=== PATIENT | male | born 1940 | race Caucasian/White ===

== ENCOUNTER → 2016-08-08 | Outpatient (CLI) | payer MEDICARE, BC ==
[~2016-08-08] MED LIST: ASPI325T PO; COLB500.5 PO; COZA50TA PO; FURO1TAB93 PO; GEMF600T PO; GLUC250C5 PO; LEVO.15 PO; METO50TA PO; NORV5TAB PO; POTA-267 PO; WARF2.5T40 PO
[2016-08-08 12:08] LABS: AUTOMATED NEUTROPHIL # 1.9 TH/MM3 (1.8-7.7); BASOPHIL % 0.6 % (0.0-2.0); EOSINOPHIL # 0.1 TH/MM3 (0-0.4); EOSINOPHIL % 4.1 % (0.0-4.0); HEMATOCRIT 41.6 % (39.0-51.0); HEMO FLAGS DIFF FINAL; LYMPH % 35.9 % (9.0-44.0); LYMPHOCYTE # 1.3 TH/MM3 (1.0-4.8); MEAN CELL VOLUME 87.3 FL (80.0-100.0); MEAN CORPUSCULAR HEMOGLOBIN 28.4 PG (27.0-34.0); MEAN CORPUSCULAR HGB CONC 32.6 % (32.0-36.0); MONO % 8.1 % (0.0-8.0); NEUT % 51.3 % (16.0-70.0); PLATELET COUNT 133 TH/MM3 (150-450); RED BLOOD COUNT 4.76 MIL/MM3 (4.50-5.90); RED CELL DISTRIBUTION WIDTH 12.8 % (11.6-17.2); WHITE BLOOD COUNT 3.6 TH/MM3 (4.0-11.0)
[2016-08-08 12:30] LABS: ANION GAP 7 MEQ/L (5-15); AST (GOT) 19 U/L (15-37); BLOOD UREA NITROGEN 17 MG/DL (7-18); CHLORIDE 107 MEQ/L (98-107); GLOMERULAR FILTRATION RATE 68 ML/MIN (>89); GLUCOSE,FASTING 90 MG/DL (74-99); MAGNESIUM 2.2 MG/DL (1.5-2.5); POTASSIUM 3.7 MEQ/L (3.5-5.1); SODIUM (NA) 142 MEQ/L (136-145); URIC ACID 7.2 MG/DL (2.6-7.2)
[2016-08-08 12:38] LABS: ALKALINE PHOSPHATASE 59 U/L (45-117); ALT (GPT) 21 U/L (12-78); HDL CHOLESTEROL 26.9 MG/DL (40.0-60.0); LDL CHOLESTEROL 70 MG/DL (0-99); TOTAL BILIRUBIN ADULT 0.8 MG/DL (0.2-1.0)
== END ==
LOC: PLAB 08:34
PROVIDERS: ATTEND Internal Medicine Nephrology
DX: N18.2 Chronic kidney disease, stage 2 (mild) (principal); M10.9 Gout, unspecified; E78.5 Hyperlipidemia, unspecified; E03.9 Hypothyroidism, unspecified
CPT/HCPCS: 36415; 80053; 80061; 83735; 84443; 84550; 85025

== ENCOUNTER → 2017-02-03 | Outpatient (CLI) | payer MEDICARE, BC ==
[2017-02-03 10:33] LABS: AUTOMATED NEUTROPHIL # 1.8 TH/MM3 (1.8-7.7); BASOPHIL % 0.9 % (0.0-2.0); EOSINOPHIL # 0.1 TH/MM3 (0-0.4); EOSINOPHIL % 4.5 % (0.0-4.0); HEMATOCRIT 38.8 % (39.0-51.0); HEMO FLAGS DIFF FINAL; LYMPH % 32.8 % (9.0-44.0); LYMPHOCYTE # 1.1 TH/MM3 (1.0-4.8); MEAN CELL VOLUME 88.3 FL (80.0-100.0); MONO % 7.7 % (0.0-8.0); NEUT % 54.1 % (16.0-70.0); PLATELET COUNT 138 TH/MM3 (150-450); RED BLOOD COUNT 4.39 MIL/MM3 (4.50-5.90); RED CELL DISTRIBUTION WIDTH 13.1 % (11.6-17.2); WHITE BLOOD COUNT 3.3 TH/MM3 (4.0-11.0)
[2017-02-03 10:45] LABS: ANION GAP 7 MEQ/L (5-15); AST (GOT) 21 U/L (15-37); BICARBONATE 27.4 MEQ/L (21.0-32.0); BLOOD UREA NITROGEN 16 MG/DL (7-18); CHLORIDE 106 MEQ/L (98-107); GLOMERULAR FILTRATION RATE 79 ML/MIN (>89); GLUCOSE,FASTING 91 MG/DL (74-99); MAGNESIUM 2.2 MG/DL (1.5-2.5); SODIUM (NA) 140 MEQ/L (136-145)
[2017-02-03 10:58] LABS: ALKALINE PHOSPHATASE 68 U/L (45-117); ALT (GPT) 19 U/L (12-78); HDL CHOLESTEROL 28.8 MG/DL (40.0-60.0); LDL CHOLESTEROL 61 MG/DL (0-99); TOTAL BILIRUBIN ADULT 0.5 MG/DL (0.2-1.0)
== END ==
LOC: PLAB 08:16
PROVIDERS: ATTEND Internal Medicine Nephrology
DX: E78.5 Hyperlipidemia, unspecified (principal); M10.9 Gout, unspecified; N18.2 Chronic kidney disease, stage 2 (mild); E03.9 Hypothyroidism, unspecified
CPT/HCPCS: 36415; 80053; 80061; 83735; 84443; 85025

== ENCOUNTER 2017-04-10 10:09 | Day surgery (SDC) | payer MEDICARE, BC ==
[2017-04-10] VITALS (8 sets, daily range): BP systolic 147–155; BP diastolic 73–87; PULSE 61–87; RESP 16–20; TEMP 98–98.1; O2SAT 95–96
[~2017-04-10] VITALS: Ht 177.8 cm; Wt 77.6 kg
[~2017-04-10 10:09] MED LIST changes: +NS 1000P @30 MLS/HR (KVO) IV SCH
[2017-04-10] MEDS ORDERED: IOHEXOL 350 MG/ML 100 ML BTL (for Cath Lab) OTHER ONE (10:10)
[2017-04-10] MEDS ORDERED: DILT240C44 PO (11:14)
[2017-04-10] MEDS ORDERED: WARF-18 PO (11:14)
[2017-04-10] MEDS ORDERED: FURO40TA PO (11:14)
[2017-04-10] MEDS ORDERED: COLB500.5 PO (11:14)
[2017-04-10] MEDS ORDERED: POTA10CA PO (11:14)
[2017-04-10] MEDS ORDERED: METO50TA PO (11:14)
[2017-04-10] MEDS ORDERED: OMEP20TA93 PO (11:14)
[2017-04-10] MEDS ORDERED: LEVO.15 PO (11:14)
[2017-04-10] MEDS ORDERED: ISOS30TA3 PO (11:14)
[2017-04-10] MEDS ORDERED: GEMF600T PO (11:14)
[2017-04-10] MEDS ORDERED: ASPI325T27 PO (11:14)
[2017-04-10 11:16] LABS: AUTOMATED NEUTROPHIL # 2.5 TH/MM3 (1.8-7.7); BASOPHIL % 0.6 % (0.0-2.0); EOSINOPHIL # 0.1 TH/MM3 (0-0.4); EOSINOPHIL % 2.8 % (0.0-4.0); HEMATOCRIT 40.8 % (39.0-51.0); HEMOGLOBIN 13.8 GM/DL (13.0-17.0); LYMPH % 30.4 % (9.0-44.0); LYMPHOCYTE # 1.3 TH/MM3 (1.0-4.8); MEAN CORPUSCULAR HEMOGLOBIN 29.4 PG (27.0-34.0); MEAN CORPUSCULAR HGB CONC 33.8 % (32.0-36.0); MEAN PLATELET VOLUME 8.3 FL (7.0-11.0); MONO % 6.8 % (0.0-8.0); MONOCYTE # 0.3 TH/MM3 (0-0.9); NEUT % 59.4 % (16.0-70.0); PLATELET COUNT 157 TH/MM3 (150-450); RED BLOOD COUNT 4.68 MIL/MM3 (4.50-5.90); RED CELL DISTRIBUTION WIDTH 12.7 % (11.6-17.2); WHITE BLOOD COUNT 4.3 TH/MM3 (4.0-11.0)
[2017-04-10 11:24] LABS: INTERNATIONAL NORMALIZED RATIO 1.6 RATIO; PROTHROMBIN TIME - PATIENT 16.4 SEC (9.8-11.6)
[2017-04-10 11:35] LABS: BICARBONATE 27.7 MEQ/L (21.0-32.0); CALCIUM 8.9 MG/DL (8.5-10.1); CREATININE 0.93 MG/DL (0.60-1.30)
[2017-04-10] MEDS ORDERED: HEPARIN-NS/PF INJ 1,000 ML ONE (12:51)
[2017-04-10] MEDS ORDERED: MIDAZOLAM HCL 2 MG/2 ML VIAL ONE (12:51)
[2017-04-10] MEDS ORDERED: BIVALIRUDIN 250 MG VIAL ONE (13:55)
[2017-04-10] MEDS ORDERED: HEPARIN-NS/PF INJ 500 ML ONE (14:12)
[2017-04-10] MEDS ORDERED: ASPIRIN 81 MG CHEW TAB ONE (14:40)
[2017-04-10] MEDS ORDERED: CLOPIDOGREL 300 MG TAB ONE (14:40)
[2017-04-10] MEDS ORDERED: ASPIRIN 81 MG CHEW TAB PO SCH (15:00)
--- NOTE | 2017-04-10 15:07 | CATHPROC ---
[employer] HIS Report Study Information Study Number Admission Scheduled Start Study Start [id number] Apr 10 2017 10:09AM 04/10/2017 Apr 10 2017 12:52PM Study Type [place] Service Left/Possible PCI Cardiac Catheterization Admit Source Facility Department Other [facility] - End User Support Specialist Physician and Clinical Staff Initial Kenneth Parr Internist Herbert RN, Phillip RecordYelena Casillas,SENIOR LABORATORY TECHNICIAN TECH2 Scrub Randi Simon,RT(R) (BS) Scrub Hawa Saini ,RT(R) Procedures Performed Procedure Location (Site) Vessel Name Angiogram LV LV Ventricle Coronary Angiograms LCA Left Coronary Coronary Angiograms RCA Right Coronary Drug Eluting Inflatio LAD Mid Left Coronary PTCA LAD Mid Left Coronary Wire insertion Fem Art (right) Femoral Art Equipment Time Tea Blender Description Size Mfg Part Number Used/Scraped [id number] 14:06 [employer] WIRE, ASAHI PROWATER 180CM 180CM Used *[id number] TRANSDUCER, TRUWAVE [id number] 12:53 GUZMAN GASCA * Used W/STOCKCOCK *[id number] 14:21 [employer]OSTON [employer] STENT, SYNERGY 2.5 X 16MM Used *[id number] 14:05 [employer] VL4 GUIDE CATHETER RUNWAY FR 6 Used *[id number] INTRODUCER SET, 12:53 [employer]. FR 5 [id number] *[id number] Used MICROPUNCTURE, STIFFENED 538-445 *[id number] 538-448 *[id number] 538-420 *[id number] 538-422 *[id number] 538-453S *[id number] [id number] 14:37 DAIG/ST. MELITA MEDICAL ANGIOSEAL, FR6 VIP FR 6 Used *[id number] 12:53 MEDLINE INDUSTRIES PACK, CCL CUSTOM * Used *[id number] 12:53 [employer]Place PACER PEN, SKIN DUAL W/ RULER * Used *[id number] BALLOON, 2.5 X 12MM NC [id number] 14:28 MEDTRONIC 12MM Used EUPHORA *[id number] 14:23 Argyle Data MEDICAL 30 ABBEY INDEFLATOR Used *[id number] 12:53 [employer]yle Data MEDICAL WIRE, 3MMJ .035 180CM 180CM Used *[id number] 13:47 MERIT MEDICAL WIRE, 3MMJ .035 180CM 180CM Used *[id number] PROBE COVER, STERILE [id number] 12:53 MICROTEK MEDICAL * Used ULTRASOUND W/ GEL *3457947 [id number] 12:53 NAMIC MANIFOLD, 4 PORT * Used *[id number] 12:53 NYCOMED OMNIPAQUE, 350 MG, 150ML 150ML [id number] Used 14:01 NYCOMED OMNIPAQUE, 350 MG, 50ML 50ML [id number] Used [id number] 12:53 [facility] BLANKET,WARM AIR CCL * Used *[id number] [id number] 12:53 TERUMO MEDICAL SHEATH, FR4 TERUMO (10CM) FR 4 Used *[id number] [id number] 14:02 TERUMO MEDICAL SHEATH, FR6 TERUMO (10CM) FR 6 Used *[id number] Equipment Model, Serial, Lot Number and Expiration Data Description Model Number Serial Number Lot Number Expiration Date ANGIOSEAL, FR6 VIP [id number] 01-13-2018 BALLOON, 2.5 X 12MM IA [id number] 12-30-2018 EUPHORA STENT, SYNERGY [id number] 11-26-2017 VL4 GUIDE CATHETER RUNWAY [id number] 11-14-2019 WIRE, 3MMJ .035 180CM [id number] 01-14-2020 History: Current Medications Medication Dosage/Unit Route Frequency Last Date/Time Taken Coumadin LOVENOX ASA K-Dur LOPRESSOR Synthroid LASIX CARDIZEM Prilosec Imdur History: Allergies Allergy Reaction No Known Allergies MERSILINE SUTURES History: Risk Factors Family History of Hypertension Dyslipidemia Previous [facility] Previous Heart Failure Premature CAD Yes Yes No Yes No Prior Valve Prior PCI Prior CABG Surgery No No No Cerebrovascular Peripheral Artery Chronic Lung On Dialysis Diabetes Disease Disease Disease No No No No No History: Symptoms/Diagnosis Selection Items Chest pain History: Stress Tests Stress or Imaging Studies Performed No History: Arrhythmias Selection Items Atrial fibrillation History: Other Disease Selection Items Gerd History: Other Current Smoker Quit Packs a Day Years Used Pack Years No 32 Years Ago 1 22 Labs Hgb (g/dl) Hct (%) WBC (l/cumm) Platelets (thousands) 11.60-17.00 35.00-51.00 4.00-11.00 150.00-450.00 13.8 40.8 4.3 157 Glucose (mg/dl) BUN (mg/dl) Creatinine (mg/dl) BUN:Creatinine (1:x) 74.00-106.00 7.00-18.00 0.50-1.30 10.00-20.00 95 16 0.9 17.8 Na (meq/l) K (meq/l) 136.00-145.00 3.50-5.10 142 4 PT (sec) PTT (sec) INR (PTT:PT) 9.80-11.60 24.30-30.10 0.90-1.10 16.4 31.6 1.6 CPK-MB (ng/ML) 0.50-3.60 Not Drawn Medication Medication Total Dose (Bolus/Oral) Medication Total Dosage/Unit 1% XYLOCAINE 20 mL ASPIRIN 324 mg FENTANYL 100 mcg HEPARIN 6800 units NTG (IC) 200 mcg PLAVIX 600 mg VERSED 2 mg Medications (Bolus/Oral) Medication Time Given Dosage/Unit Administered By Reason FENTANYL 04/10/2017 1:31:05 PM 50 mcg Phillip Godinez RN 50 mcg FENTANYL given in lab by Phillip Godinez RN in Left Antecubital via Peripheral IV. Ordered by Kenneth Manzano. 1% XYLOCAINE 04/10/2017 1:31:18 PM 20 mL Kenneth Duff 20 mL 1% XYLOCAINE given in lab by Kenneth Duff in Right Groin via Subcutaneous. Ordered by Kenneth King. VERSED 04/10/2017 1:32:09 PM 2 mg Phillip Godinez RN 2 mg VERSED given in lab by Phillip Godinez RN in Left Antecubital via Peripheral IV. Ordered by Kenneth Duff. HEPARIN 04/10/2017 2:04:57 PM 6800 units Phillip Godinez RN 6800 units HEPARIN given in lab by Phillip Godinez RN in Left Antecubital via Peripheral IV. Ordered by Kenneth Duff. NTG (IC) 04/10/2017 2:32:08 PM 200 mcg Kenneth Duff 200 mcg NTG (IC) given in lab by Kenneth Duff via Intra-coronary. Ordered by Kenneth Duff. FENTANYL 04/10/2017 2:37:28 PM 50 mcg Phillip Godinez RN 50 mcg FENTANYL given in lab by Phillip Godinez RN in Left Antecubital via Peripheral IV. Ordered by Kenneth Manzano. ASPIRIN 04/10/2017 2:42:22 PM 324 mg Phillip Godinez RN 324 mg ASPIRIN given in lab by Phillip Godinez RN via Oral. Ordered by Kenneth Duff. PLAVIX 04/10/2017 2:46:51 PM 600 mg Phillip Godinez RN 600 mg PLAVIX given in lab by Phillip Godinez RN via Oral. Ordered by Kenneth Duff. Medication (Drip) Medication Time Given Dosage/Unit Concentration/Unit Diluent (ml) Solution IV Solutions 04/10/2017 12:57:00 PM 50 mL (IV) 500 NaCl .9 Patient arrived on IV Solutions in Left Antecubital via Peripheral IV. Pump/Drip Flow using NaCl .9. Initial Case Assessment Cardiovascular HR Rhythm NIBP Chest Pain 81 paced 175/99 0 Circulatory - Right Pulses Dorsalis Pedis Femoral 2 2 Scale (0,1,2,3,4,d) Circulatory - Left Pulses Dorsalis Pedis Femoral 2 2 Scale (0,1,2,3,4,d) Neurological State Oriented to time-place- Alert Moves all extremities person Respiration - General Respiration Rate SpO2 (%) (B/min) 10 97 Final Case Assessment Cardiovascular HR Rhythm NIBP Chest Pain 77 paced 141/76 0 Chronological Log Time Study Chronological Log 12:45:21 Patient arrived via Bed. 12:45:27 Patient Name, D.O.B, / Armband Verified By R.N. 12:52:32 Consent signed by the physician and the patient and verified by the End User Support Specialist staff. 12:52:33 Pre-op and post- op instructions given; patient acknowledges understanding of instructions. 12:52:34 Verbal Stimulation=2 Physical Stimulation=2 Airway=2 Respiration=2 TOTAL=8. (0=absent, 1=li mited, 2=present) Vitals capture started with the following parameters, Patient=Adult, Interval=5 min, Initial Pr ztzhut=545 mmHg, 12:53:39 Deflation Rate=5 mmHg, Cuff placed on Left Arm 12:53:47 Reference ECG taken 12:54:53 HR=73 bpm, JUCF=468/99 mmhg, SpO2=96.0 %, Resp=16 B/min, Pain=0, Rosa=10, Warner=2 12:56:53 Patient has been NPO for More than 6Hrs. 12:56:55 Skin Breakdown-none per patient 12:56:57 Hanna Prominences Protected 12:56:59 A # 20 IV was noted in the Antecubital (left). Grade = patent 12:57:00 Patient arrived on IV Solutions in Left Antecubital via Peripheral IV. Pump/Drip Flow using NaCl .9. 12:57:02 History and physical on the chart or being dictated. Assessment: Initial Case, HR=81 BPM, Rhythm=paced, PMJO=100/99 mmhg, Chest Pain=0 Right Pulses: Mariano Ped=2, Femoral=2 12:57:03 Left Pulses: Mariano Ped=2, Femoral=2 Neurological: State=Alert, Ox3, AZAR Respiration: Resp=10 B/min, SpO2=97 % 12:59:25 HR=79 bpm, JJWE=307/90 mmhg, SpO2=97.0 %, Resp=16 B/min, Rosa=10 13:04:24 HR=78 bpm, ZFKB=003/110 mmhg, SpO2=98.0 %, Resp=10 B/min, Rosa=10 13:09:25 HR=88 bpm, UJGO=531/109 mmhg, SpO2=98.0 %, Resp=8 B/min 13:11:18 Pressure channel 1 zeroed. 13:12:00 MD paged 13:14:22 HR=87 bpm, OFMN=497/94 mmhg, SpO2=98.0 %, Resp=8 B/min 13:19:25 HR=79 bpm, ZINF=215/98 mmhg, SpO2=99.0 %, Resp=7 B/min, Rosa=10 13:24:26 HR=87 bpm, RUFL=001/103 mmhg, SpO2=97.0 %, Resp=17 B/min 13:28:10 MD arrived. 13:29:25 HR=80 bpm, YYVD=805/109 mmhg, SpO2=97.0 %, Resp=15 B/min, Rosa=10 Time Out. Correct patient, correct procedure, correct physician, power injector not loaded with contrast with surgical 13:30:20 team present. Time Out Concurred by MD and individual staff in procedure. 13:31:05 Case Start 13:31:05 50 mcg FENTANYL given in lab by Phillip Godinez RN in Left Antecubital via Peripheral IV. Orde red by Kenneth Duff. 20 mL 1% XYLOCAINE given in lab by Kenneth Duff in Right Groin via Subcutaneous. Ordered by Sherin 13:31:18 Kenneth. 13:32:09 2 mg VERSED given in lab by Phillip Godinez RN in Left Antecubital via Peripheral IV. Ordered by Kenneth Duff. 13:32:52 Access site was Right Femoral Artery. A INTRODUCER SET, MICROPUNCTURE, STIFFENED FR 5 was advanced into the Fem Art (right) using the 13:33:56 Percutaneous technique. A SHEATH, FR4 TERUMO (10CM) FR 4 was exchanged in the Fem Art (right). This was necessary in or mina to 13:34:06 accomodate a larger catheter. 13:34:24 HR=86 bpm, EMKU=208/92 mmhg, SpO2=95.0 %, Resp=15 B/min A JL 4.0 INFINITI CATHETER FR 4 was advanced over a wire. OMNIPAQUE, 350 MG, 150ML 150ML was us ed for 13:36:22 injections. 13:37:44 Unable to cannulate, Catheter was removed A JL 5.0 INFINITI CATHETER FR 4 was advanced over a wire. OMNIPAQUE, 350 MG, 150ML 150ML was us ed for 13:39:00 injections. 13:39:28 HR=80 bpm, OGPJ=959/84 mmhg, SpO2=95.0 %, Resp=17 B/min Recorded Pressure: Ao, HR=87, Condition=Condition 1 13:40:09 (Aorta) Ao 129/72/98 13:41:53 The LCA was injected and visualized at various angles. OMNIPAQUE, 350 MG, 150ML 150ML used . 13:44:14 Catheter was removed A AR MOD INFINITI CATHETER FR 4 was advanced over a wire. OMNIPAQUE, 350 MG, 150ML 150ML was us ed for 13:44:23 injections. 13:44:27 HR=91 bpm, OQVT=927/82 mmhg, SpO2=96.0 %, Resp=20 B/min 13:46:51 Unable to advance cather, Catheter was removed 13:47:34 A WIRE, 3MMJ .035 180CM 180CM was inserted via Fem Art (right). A AR MOD INFINITI CATHETER FR 4 was advanced over a wire. OMNIPAQUE, 350 MG, 150ML 150ML was us ed for 13:48:07 injections. 13:49:26 HR=85 bpm, PHMB=877/94 mmhg, SpO2=95.0 %, Resp=8 B/min 13:54:27 HR=80 bpm, WBGI=339/93 mmhg, SpO2=96.0 %, Resp=20 B/min 13:54:56 Unable to cannulate, Catheter was removed A AL 1 INFINITI CATHETER FR 4 was advanced over a wire. OMNIPAQUE, 350 MG, 150ML 150ML was used for 13:54:57 injections. 13:55:08 The RCA was injected and visualized at various angles. OMNIPAQUE, 350 MG, 150ML 150ML used . After removing the current catheter a PIGTAIL ANG. INFINITI CATHETER FR 4 was advanced over a W DEBORAH, 3MMJ .035 13:58:40 180CM 180CM. 13:59:30 HR=77 bpm, ASRW=826/79 mmhg, SpO2=96.0 %, Resp=8 B/min Recorded Pressure: LV, HR=69, Condition=Condition 1 13:59:41 (Left Ventricle) LV 123/8/10 14:00:31 The LV was injected at 8 cc/sec for a total of 20. OMNIPAQUE, 350 MG, 50ML 50ML used. Recorded Pressure: LV, Ao, HR=77, Condition=Condition 1 14:01:56 (Left Ventricle) LV 129/9/12, (Aorta) Ao 130/64/95 14:02:33 Catheter was removed over wire. A SHEATH, FR6 TERUMO (10CM) FR 6 was exchanged in the Fem Art (right). This was necessary in or mina to 14:04:16 accomodate a larger catheter. 14:04:27 HR=72 bpm, CTAE=905/88 mmhg, SpO2=97.0 %, Resp=23 B/min 14:04:57 6800 units HEPARIN given in lab by Phillip Godinez RN in Left Antecubital via Peripheral IV. O rdered by Kenneth Duff. A VL4 GUIDE CATHETER RUNWAY FR 6 was advanced over a wire. OMNIPAQUE, 350 MG, 150ML 150ML was u sed for 14:07:53 injections. 14:09:30 HR=81 bpm, PGAM=226/83 mmhg, SpO2=97.0 %, Resp=10 B/min 14:10:39 The LCA was injected and visualized at various angles. OMNIPAQUE, 350 MG, 150ML 150ML used . 14:14:27 HR=85 bpm, VZLH=618/91 mmhg, SpO2=96.0 %, Resp=0 B/min 14:18:18 A WIRE, ASAHI PROWATER 180CM 180CM was inserted via Fem Art (right). 14:19:05 Activated Clotting Time Drawn 14:19:30 HR=78 bpm, DEWB=327/87 mmhg, SpO2=96.0 %, Resp=8 B/min A STENT, SYNERGY 2.5 X 16MM was advanced through a VL4 GUIDE CATHETER RUNWAY FR 6 over a WIRE, ASAHI 14:21:33 PROWATER 180CM 180CM. A STENT, SYNERGY 2.5 X 16MM was deployed using a 30 ABBEY INDEFLATOR at 12 atmospheres for 30 sec onds in the 14:23:12 LAD Mid. 14:24:24 Delivery device removed 14:24:29 HR=81 bpm, NGUS=209/96 mmhg, SpO2=96.0 %, Resp=8 B/min 14:25:30 ACT (Normal Range 90-180) = 352 A BALLOON, 2.5 X 12MM NC EUPHORA 12MM was inserted over WIRE, ASAHI PROWATER 180CM 180CM via th e LAD 14:26:34 Mid. A BALLOON, 2.5 X 12MM NC EUPHORA 12MM over a WIRE, ASAHI PROWATER 180CM 180CM in the LAD Mid wa s 14:29:25 inflated using a 30 ABBEY INDEFLATOR at 14 abbey for 20 sec. 14:29:28 HR=82 bpm, GPKS=438/92 mmhg, SpO2=96.0 %, Resp=10 B/min 14:31:46 Balloon Removed. 14:32:08 200 mcg NTG (IC) given in lab by Kenneth Duff via Intra-coronary. Ordered by Micky Duff. 14:33:30 Wire removed 14:34:10 Catheter was removed over wire 14:34:33 HR=74 bpm, JKLS=762/70 mmhg, SpO2=96.0 %, Resp=14 B/min 14:35:06 An injection in the Fem Art (right) was made through the SHEATH, FR6 TERUMO (10CM) FR 6. 14:37:12 Betadine applied to site. 14:37:28 50 mcg FENTANYL given in lab by Phillip Godinez RN in Left Antecubital via Peripheral IV. Orde red by Kenneth Duff. 14:37:53 ANGIOSEAL, FR6 VIP FR 6 placement in the Fem Art (right) 14:39:32 HR=80 bpm, FATG=092/76 mmhg, SpO2=94.0 %, Resp=5 B/min 14:39:47 Case End 14:40:11 Sterile dressing applied to site 14:40:55 No case complications noted. 14:40:56 Cine recording checked. 14:41:36 Assessment: Final Case, HR=77 BPM, Rhythm=paced, ERSC=206/76 mmhg, Chest Pain=0 14:42:22 324 mg ASPIRIN given in lab by Phillip Godinez RN via Oral. Ordered by Kenneth Duff. 14:44:29 HR=86 bpm, PGTE=357/89 mmhg, SpO2=95.0 %, Resp=12 B/min 14:46:51 600 mg PLAVIX given in lab by Phillip Godinez RN via Oral. Ordered by Kenneth Duff. 14:49:03 Vitals capture stopped. 14:52:28 Patient transported to DOCU. End Study - Contrast Media Used In Study Contrast Total Opened (mL) Total Used (mL) Total Wasted (mL) Omnipaque 180 180 0 End Study - Maximum Contrast Load Max Contrast Load (mL) 536.6 End Study - Radiation Exposure Fluoro Time (minutes) 17.4 End Study - Sheaths Sheaths Pulled By Sheath Hold Time (min) Kenneth Duff End Study - Patient Disposition Complications Transferred To Interventional Outcome No Telemetry Bed successful
[2017-04-10] MEDS ORDERED: ATORVASTATIN 40 MG TAB PO SCH (21:00)
[2017-04-10] MEDS: METOPROLOL TARTRATE 50 MG TAB PO SCH (21:36)
[2017-04-11] VITALS (17 sets, daily range): BP systolic 122–159; BP diastolic 71–88; PULSE 65–94; RESP 18; TEMP 97.7–98.4; O2SAT 95–98
[2017-04-11] MEDS ORDERED: LEVOTHYROXINE SODIUM 150 MCG TAB PO SCH (06:00)
[2017-04-11 06:51] LABS: BICARBONATE 26.4 MEQ/L (21.0-32.0); CALCIUM 8.8 MG/DL (8.5-10.1); CREATININE 0.84 MG/DL (0.60-1.30)
[2017-04-11 06:54] LABS: CHOLESTEROL/ HDL RATIO 5.48 RATIO; HDL CHOLESTEROL 20.6 MG/DL (40.0-60.0)
[2017-04-11] MEDS: METOPROLOL TARTRATE 50 MG TAB PO SCH (08:18)
[2017-04-11] MEDS ORDERED: CLOPIDOGREL 75 MG TAB PO SCH (09:00)
[2017-04-11] MEDS ORDERED: DILTIAZEM-CD 240 MG CAP ER PO SCH (09:00)
--- NOTE | 2017-04-11 14:20 | EKG ---
Date Performed: 04/10/2017 Time Performed: 12:36:26 PTAGE: 77 years EKG: Atrial fibrillation. Demand ventricular pacing Abnormal ECG PREVIOUS TRACING : 12/12/2013 13.29 Clinical correlation is recommended DOCTOR: Eagle Anderson Interpretating Date/Time 04/11/2017 14:18:29
--- NOTE | 2017-04-11 15:43 | PD.CARD.PN ---
Subjective Subjective Remarks No CP or SOB, feels fine Objective Medications Current Medications Medications (Trade) Dose Ordered Sig/Kitty Route Start Time Stop Time Status Last Admin Sodium Chloride 1,000 ml @ 30 mls/hr Q24H IV 04/10/17 10:00 04/10/17 10:00 (Plavix) 75 mg DAILY PO 04/11/17 09:00 04/11/17 08:18 (Aspirin Chew) 81 mg DAILY PO 04/10/17 15:00 04/11/17 08:17 (Lipitor) 40 mg HS PO 04/10/17 21:00 04/10/17 21:36 (Cardizem Cd) 240 mg DAILY PO 04/11/17 09:00 04/11/17 08:18 (Lopressor) 50 mg BID PO 04/10/17 21:00 04/11/17 08:18 (Synthroid) 150 mcg DAILY@0600 PO 04/11/17 06:00 04/11/17 05:21 Vital Signs / I&O Vital Signs Date Time Temp Pulse Resp B/P (MAP) Pulse Ox O2 Delivery O2 Flow Rate FiO2 04/11/17 11:26 98.0 84 18 122/71 (88) 96 04/11/17 08:08 97.7 94 18 149/88 (108) 95 04/11/17 08:08 Room Air 04/11/17 07:00 87 04/11/17 06:00 69 04/11/17 05:00 71 04/11/17 04:00 98.2 73 18 159/80 (106) 98 04/11/17 04:00 Room Air 04/11/17 04:00 73 04/11/17 03:00 70 04/11/17 02:00 69 04/11/17 01:00 65 04/11/17 00:00 98.4 70 18 138/74 (95) 96 04/11/17 00:00 70 04/11/17 00:00 Room Air 04/10/17 23:00 66 04/10/17 22:00 63 04/10/17 21:00 65 04/10/17 20:00 61 04/10/17 20:00 98.0 61 20 148/76 (100) 95 04/10/17 18:00 69 04/10/17 17:42 66 04/10/17 16:59 98.1 63 16 147/73 (97) 96 I/O 04/10/17 04/10/17 04/10/17 04/11/17 04/11/17 04/11/17 07:00 15:00 23:00 07:00 15:00 23:00 Intake Total 240 ml 248 ml Output Total 750 ml Balance 240 ml -502 ml Intake Oral 240 ml 248 ml Output Urine Total 750 ml # Bowel Movements 0 Physical Exam GENERAL: In NAD SKIN: Warm and dry. HEAD: Normocephalic. EYES: No scleral icterus. No injection or drainage. NECK: Supple, trachea midline. No JVD or lymphadenopathy. CARDIOVASCULAR: Regular rate and rhythm without murmurs, gallops, or rubs. RESPIRATORY: Breath sounds equal bilaterally. No accessory muscle use. GASTROINTESTINAL: Abdomen soft, non-tender, nondistended. MUSCULOSKELETAL: No cyanosis, or edema. Groin stable Laboratory Laboratory Tests Test 04/11/17 05:10 Blood Urea Nitrogen 16 MG/DL Creatinine 0.84 MG/DL Random Glucose 105 MG/DL Calcium Level 8.8 MG/DL Sodium Level 140 MEQ/L Potassium Level 3.8 MEQ/L Chloride Level 107 MEQ/L Carbon Dioxide Level 26.4 MEQ/L Anion Gap 7 MEQ/L Estimat Glomerular Filtration Rate 88 ML/MIN Triglycerides Level 175 MG/DL Cholesterol Level 113 MG/DL LDL Cholesterol 57 MG/DL HDL Cholesterol 20.6 MG/DL Cholesterol/HDL Ratio 5.48 RATIO Assessment and Plan Problem List: (1) CAD (coronary artery disease) ICD Codes: I25.10 - Atherosclerotic heart disease of [place] coronary artery without angina pectoris (2) Stented coronary artery ICD Codes: Z95.5 - Presence of coronary angioplasty implant and graft Assessment and Plan Stable p mid LAD stenting. Groin stable. Continue Plavix, baby ASA, beta jose , start statin. DC home. F/u w Dr. Duff. Nena Faye MD Apr 11, 2017 15:43
--- NOTE | 2017-04-13 09:56 | MA ---
cc: KENNETH DUFF M.D. DATE 04/10/2017 PROCEDURE 1. Heart catheterization. 2. Stent placement to the proximal to mid LAD. CONSENT A full informed consent was obtained prior to the procedure. The risks of , bleeding, myocardial infarction, perforation, aspiration, foreseen and unforeseen complications were reviewed. The patient fully appeared to understand the risks. PROCEDURAL STATEMENTS The patient was prepped and draped in the usual manner. The right femoral artery was entered using a micropuncture technique. Via a 4 Portuguese sheath left and right coronary catheters were used to intubate the left and right coronaries, and a pigtail catheter the left ventricle. Multiple angiographic views were carried out. CORONARIES The left main was large and free of significant disease. There was calcification noted throughout the LAD system, especially in the proximal LAD. In the very proximal LAD was a medium size diagonal branch. There was a large septal youth development professional. There was a second small to medium diagonal branch in the mid LAD and this had an 80% stenosis. Following stenting this was reduced to 0%. The circumflex artery was a large vessel with a large first obtuse marginal branch that bifurcated to sub-branches. There was evidence of diffuse disease of about 60% involving the small 0.5 mm branches that were short. In the distal circumferential there was also evidence of high-grade 80% disease a small area of muscle. The second obtuse marginal branch was small. The right coronary artery was an aberrant vessel. It was engaged with an AL-1 catheter. There was evidence of diffuse disease of about 25-40% in the proximal right. There was a large posterior descending artery. LEFT VENTRICULOGRAM Well-preserved ejection fraction of 55%. No evidence of gradient on pullback across the LV outflow tract and aortic valve. HEMODYNAMICS The aortic pressure was 130/64 with mean of 95. LV pressure was 129. The left ventricle end-diastolic pressure was 12. INTERVENTION The patient was given sedation with fentanyl and Versed. Following the left heart catheterization with a 4 Portuguese system the patient was given heparin 6800 units and an ACT of 352 was obtained. Prior to this the 4 Portuguese sheath had been exchanged for a 6 Portuguese [place] sheath ([employer]). A [employer] left 4.0 guide catheter was used to intubate the left main. A 0.014 Prowater wire was used to cross the mid LAD lesion. This was directly stented with a 16 mm x 2.5 Synergy balloon inflated to 12 atmospheres. The stent was post dilated using a 12 mm x 2.5 mm noncompliant balloon inflated to 14 atmospheres. Intracoronary nitroglycerin was used. Check angiograms were performed. At the end of the procedure the patient had a femoral angiogram performed and an Angio-Seal was used in the usual manner to seal the femoral artery. The patient was given 600 units of Plavix p.o. and aspirin. CONCLUSION Successful stenting of the mid LAD. Kenneth Duff MD, CP,[facility]/TEO /2:51 PM /9:31 AM MTDEyad
== END 2017-04-11 16:31 | disposition home or self-care (01) ==
LOC: HDOC 10:09 → HDIC 10:10 → HCIS 16:48 → HDOC 04-11 16:31
PROVIDERS: ATTEND Internal Medicine Cardiovascular Disease
DX: I25.10 Atherosclerotic heart disease of native coronary artery without angina pectoris (principal); I48.91 Unspecified atrial fibrillation
CPT/HCPCS: 80048; 80061; 85002; 85025; 85610; 85730; 92928; 93005; 93458; 99152; 99153; C1725; C1760; C1769; C1874; C1887; C1893; G0269; J1644; J2250; J3010; J7030; J0583; Q9967

== ENCOUNTER → 2017-08-26 | Outpatient (CLI) | payer MEDICARE, BC ==
[~2017-08-26] MED LIST changes: -ASPI325T PO; +ASPI325T27 PO; -COZA50TA PO; +DILT240C44 PO; -FURO1TAB93 PO; +FURO40TA PO; -GLUC250C5 PO; +ISOS30TA3 PO; -NORV5TAB PO; -NS 1000P @30 MLS/HR (KVO) IV SCH; +OMEP20TA93 PO; -POTA-267 PO; +POTA10CA PO; +WARF-18 PO; -WARF2.5T40 PO
[2017-08-26 14:21] LABS: AUTOMATED NEUTROPHIL # 1.9 TH/MM3 (1.8-7.7); BASOPHIL % 0.6 % (0.0-2.0); EOSINOPHIL # 0.1 TH/MM3 (0-0.4); EOSINOPHIL % 3.8 % (0.0-4.0); HEMOGLOBIN 13.1 GM/DL (13.0-17.0); LYMPH % 33.6 % (9.0-44.0); LYMPHOCYTE # 1.2 TH/MM3 (1.0-4.8); MEAN CELL VOLUME 87.6 FL (80.0-100.0); MEAN CORPUSCULAR HEMOGLOBIN 29.3 PG (27.0-34.0); MEAN CORPUSCULAR HGB CONC 33.5 % (32.0-36.0); MEAN PLATELET VOLUME 8.8 FL (7.0-11.0); MONO % 7.2 % (0.0-8.0); MONOCYTE # 0.2 TH/MM3 (0-0.9); NEUT % 54.8 % (16.0-70.0); PLATELET COUNT 126 TH/MM3 (150-450); RED BLOOD COUNT 4.45 MIL/MM3 (4.50-5.90); RED CELL DISTRIBUTION WIDTH 13.6 % (11.6-17.2); WHITE BLOOD COUNT 3.4 TH/MM3 (4.0-11.0)
[2017-08-26 14:33] LABS: ALBUMIN 4.2 GM/DL (3.4-5.0); AST (GOT) 20 U/L (15-37); BICARBONATE 26.7 MEQ/L (21.0-32.0); BLOOD UREA NITROGEN 17 MG/DL (7-18); CALCIUM 9.2 MG/DL (8.5-10.1); CHLORIDE 108 MEQ/L (98-107); GLOMERULAR FILTRATION RATE 72 ML/MIN (>89); GLUCOSE,FASTING 87 MG/DL (74-99); MAGNESIUM 2.3 MG/DL (1.5-2.5); SODIUM (NA) 142 MEQ/L (136-145)
[2017-08-26 14:37] LABS: ALKALINE PHOSPHATASE 62 U/L (45-117); ALT (GPT) 24 U/L (12-78); TOTAL BILIRUBIN ADULT 0.7 MG/DL (0.2-1.0); TOTAL PROTEIN 8.1 GM/DL (6.4-8.2)
== END ==
LOC: PLAB 08:40
PROVIDERS: ATTEND Internal Medicine Nephrology
DX: G47.30 Sleep apnea, unspecified (principal); I48.91 Unspecified atrial fibrillation; I12.9 Hypertensive chronic kidney disease with stage 1 through stage 4 chronic kidney disease, or unspecified chronic kidney disease; N18.9 Chronic kidney disease, unspecified
CPT/HCPCS: 36415; 80053; 83735; 85025

== ENCOUNTER → 2017-09-04 | Outpatient (CLI) | payer MEDICARE, BC | LOC: PLAB 07:55 | PROVIDERS: ATTEND Internal Medicine Nephrology | DX: I48.91 Unspecified atrial fibrillation (principal); E03.9 Hypothyroidism, unspecified; E78.5 Hyperlipidemia, unspecified | CPT/HCPCS: 36415; 84443 ==